=== PATIENT | female | born 2000 | race Caucasian/White ===

== ENCOUNTER 2023-08-26 08:35 | Inpatient (IN) | payer OTHER ==
[2023-08-26] MEDS: ELECTROLYTE-148 SOLN 1,000 ML IV SCH (08:40)
[2023-08-26] MEDS ORDERED: CITRIC ACID/SODIUM CITRATE 30 ML UNIT-DOSE CUP PO ONE (09:13)
[2023-08-26 09:33] VITALS: BMI 33.6
[2023-08-26] MEDS ORDERED: morphine SULFATE/PF 1 MG/2 ML (2cc Syringe - QUVA) ONE (10:35)
[2023-08-26] MEDS ORDERED: FENTANYL CITRATE/PF 50 MCG/ML VIAL ONE (10:35)
[2023-08-26] MEDS ORDERED: ceFAZolin SODIUM 1 GM VIAL ONE (11:23)
[2023-08-26] MEDS ORDERED: OXYTOCIN 10 UNITS/ML VIAL ONE (11:23)
[2023-08-26] MEDS ORDERED: ONDANSETRON 4 MG/2 ML VIAL ONE (11:23)
[2023-08-26] MEDS ORDERED: PHENYLEPHRINE HCL 10 MG/1 ML SINGLE DOSE VIAL ONE (11:23)
[2023-08-26] MEDS ORDERED: KETOROLAC TROMETHAMINE 30 MG/1 ML VIAL ONE (11:23)
[2023-08-26 11:54] LABS: CORD BASE EXCESS -4.5 mmol/L (0-2); CORD HCO3 23.1 mmHg (20-29); CORD PCO2 52.1 mmHg (30-78); CORD pH 7.265 (7.14-7.44)
[2023-08-26 12:00] LABS: CORD HCO3 24.5 mmHg (20-29); CORD PCO2 67.3 mmHg (30-78); CORD pH 7.179 (7.14-7.44)
[2023-08-26] MEDS ORDERED: ONDANSETRON 4 MG/2 ML VIAL IVPUSH PRN (12:24)
[2023-08-26] MEDS ORDERED: morphine SULFATE/PF 1 MG/2 ML (2cc Syringe - QUVA) SPIN ONE (12:24)
[2023-08-26] MEDS ORDERED: ACETAMINOPHEN 1000 MG/100 ML BAG IVPB ONE (12:25)
[2023-08-26] MEDS ORDERED: METHYLERGONOVINE MALEATE 0.2 MG/1 ML AMP IM PRN (12:34)
[2023-08-26] MEDS ORDERED: ACETAMINOPHEN INJECTION 100 ML IVPB ONE (12:35)
[2023-08-26] MEDS ORDERED: ACETAMINOPHEN 1000 MG/100 ML BAG IVPB PRN (12:36)
[2023-08-26] MEDS ORDERED: OXYTOCIN 20 UNITS in 0.9% NS 20 UNIT/1,000 ML INFUS.BAG IV ONE (13:42)
[2023-08-26] MEDS: OXYTOCIN 20 UNITS in 0.9% NS 20 UNIT/1,000 ML INFUS.BAG IV SCH ×2 (13:50→22:00)
[2023-08-26 14:34] VITALS: RESP 18
[2023-08-26] MEDS: CEFAZOLIN SODIUM 2 GM in DEXTROSE 5%-WATER 100 ML IVPB SCH (18:07)
[2023-08-27] MEDS ORDERED: oxyCODONE HCL 5 MG TABLET PO PRN ×2 (00:34)
[2023-08-27] MEDS: CEFAZOLIN SODIUM 2 GM in DEXTROSE 5%-WATER 100 ML IVPB SCH ×2 (02:12→10:32)
[2023-08-27 08:06] LABS: BASO % 0.3 % (0-2.0); EOS % 0.8 % (0-4.5); HEMATOCRIT 30.5 % (32.4-45.2); HEMOGLOBIN 10.1 GM/dL (10.7-15.3); LYMPH % 23.8 % (8-40); MCH 26.8 pg (25.7-33.7); MCHC 33.1 g/dl (32.0-36.0); MEAN PLT VOLUME 10.9 fl (7.5-11.1); MONO % 6.9 % (3.8-10.2); NEUT % 68.2 % (42.8-82.8); PLATELET COUNT 141 10^3/uL (134-434); RBC 3.76 M/mm3 (3.60-5.2); WHITE BLOOD COUNT 10.7 K/mm3 (4.0-10.0)
[2023-08-27] MEDS: ENOXAPARIN NA (PORCINE) 40 MG/0.4 ML DISP.SYRIN SQ SCH (10:11)
[2023-08-27] MEDS: IBUPROFEN 600 MG TABLET (FP) PO PRN ×2 (10:38→22:21)
[2023-08-27] MEDS: SIMETHICONE 80 MG TAB.CHEW (FP) PO PRN ×2 (10:39→22:19)
[2023-08-27] MEDS ORDERED: ACETAMINOPHEN 325 MG TABLET (FP) PO PRN (12:00)
[2023-08-27] MEDS ORDERED: BISACODYL 10 MG SUPP.RECT RC PRN (12:34)
[2023-08-28] MEDS: SIMETHICONE 80 MG TAB.CHEW (FP) PO PRN ×3 (09:34→22:24)
[2023-08-28] MEDS: ENOXAPARIN NA (PORCINE) 40 MG/0.4 ML DISP.SYRIN SQ SCH (11:04)
[2023-08-28] MEDS: IBUPROFEN 600 MG TABLET (FP) PO PRN ×2 (16:08→22:24)
[2023-08-28] MEDS: OXYTOCIN 20 UNITS in 0.9% NS 20 UNIT/1,000 ML INFUS.BAG IV SCH (21:16)
[2023-08-28] MEDS: ELECTROLYTE-148 SOLN 1,000 ML IV SCH ×2 (21:16→21:17)
[2023-08-29 07:44] LABS: BASO % 0.5 % (0-2.0); EOS % 2.3 % (0-4.5); HEMATOCRIT 28.9 % (32.4-45.2); HEMOGLOBIN 9.5 GM/dL (10.7-15.3); LYMPH % 31.9 % (8-40); MCH 26.6 pg (25.7-33.7); MCHC 32.8 g/dl (32.0-36.0); MEAN CELL VOLUME 81.1 fl (80-96); MEAN PLT VOLUME 10.2 fl (7.5-11.1); MONO % 8.4 % (3.8-10.2); NEUT % 56.9 % (42.8-82.8); PLATELET COUNT 141 10^3/uL (134-434); RBC 3.56 M/mm3 (3.60-5.2); RDW 14.5 % (11.6-15.6); WHITE BLOOD COUNT 9.1 K/mm3 (4.0-10.0)
[2023-08-29] MEDS: ENOXAPARIN NA (PORCINE) 40 MG/0.4 ML DISP.SYRIN SQ SCH (09:32)
[2023-08-29 10:40] VITALS: BP 131/83; PULSE 7; TEMP 98.3
[2023-08-29] MEDS: IBUPROFEN 600 MG TABLET (FP) PO PRN (14:38)
== END 2023-08-29 19:00 | disposition home or self-care (01) | DRG 540 ==
LOC: JLDR 08:35 → J3W 13:50
PROVIDERS: ADMIT Obstetrics & Gynecology; ATTEND Obstetrics & Gynecology
PROC: 10D00Z1 Extraction of Products of Conception, Low, Open Approach (ICD-10-PCS; principal; 2023-08-26)
DX: O32.1XX0 Maternal care for breech presentation, not applicable or unspecified (principal); Z3A.39 39 weeks gestation of pregnancy; Z37.0 Single live birth; O75.89 Other specified complications of labor and delivery; R07.89 Other chest pain
CPT/HCPCS: 36415; 36600; 71046-TC-FY; 80053; 82570; 82803; 84156; 85025; 85610; 85730; 86780; 86850; 86900; 86901; 88307-TC; 93005; 93010; 94010